=== PATIENT | male | born 1950 | race Two or more races ===

== ENCOUNTER 2025-02-28 11:22 | Emergency (ER) | payer OTHER ==
[~2025-02-28] VITALS: Ht 152.4 cm; Wt 116.1 kg
[2025-02-28] MEDS ORDERED: ZESTRIL10 M1 PO (11:25)
[2025-02-28] MEDS ORDERED: KETOROLAC TROMETHAMINE 60 MG VIAL IM ONE ×2 (11:45→11:51)
[2025-02-28] MEDS ORDERED: ACETAMINOPHEN 500 MG GEL..CAP PO ONE ×2 (11:45→11:51)
[2025-02-28] MEDS ORDERED: ORPHENADRINE CITRATE 30 MG/ML AMPUL IM ONE (11:45)
[2025-02-28] MEDS ORDERED: DEXAMETHASONE SODIUM PHOSPHATE 4 MG/ML VIAL IM ONE (11:45)
[2025-02-28] MEDS ORDERED: ORPHENADRINE CITRATE 30 MG/ML AMPUL ONE (11:50)
[2025-02-28] MEDS ORDERED: DEXAMETHASONE SODIUM PHOSPHATE 4 MG/ML VIAL ONE (11:51)
[2025-02-28 12:48] LABS: BASO % 0.9 % (0.1-1.2); EOS # 0.12 (0.04-0.54); EOS % 1.6 % (0.7-7.0); LYMPH # 1.28 (1.18-3.74); LYMPH % 17.0 % (19.3-53.1); MEAN PLATELET VOLUME 10.40 fl (9.4-12.4); MONO # 0.58 (0.24-0.82); MONO % 7.7 % (4.7-12.5); NEUT # 5.46 (1.56-6.13); NEUT % 72.3 % (34.0-71.1); RED CELL DISTRIBUTION WIDTH 13.5 % (11.6-14.4)
[2025-02-28 13:09] LABS: BUN CREA RATIO 19.0 (7.0-25.0); CREATININE SERUM 1.05 mg/dL (0.70-1.30); GFR 69.04; GLUCOSE FASTING 92.0 mg/dL (65-100); OSMOLALITY SERUM 289.0 MOSM/KG (275-295)
[2025-02-28] MEDS ORDERED: IBU400 MG PO (14:44)
[2025-02-28] MEDS ORDERED: NORFLEX100MG PO (14:44)
[2025-02-28] MEDS ORDERED: PEPCID AC20 MG PO (14:44)
== END 2025-02-28 17:52 | disposition home or self-care (01) ==
LOC: ER 11:23
PROVIDERS: General Practice
DX: M70.52 Other bursitis of knee, left knee (principal); I10 Essential (primary) hypertension

== ENCOUNTER 2025-02-28 14:50 | Outpatient (CLI) | payer OTHER ==
[~2025-02-28 14:50] MED LIST: IBU400 MG PO; NORFLEX100MG PO; PEPCID AC20 MG PO; ZESTRIL10 M1 PO
== END 2025-02-28 14:58 | disposition home or self-care (01) ==
LOC: SONOGRAMA 14:50
DX: M71.20 Synovial cyst of popliteal space [Baker], unspecified knee (principal)